=== PATIENT | female | born 1960 ===

== ENCOUNTER 2019-06-22 09:40 | Outpatient (CLI) | payer OTHER, SELFPAY ==
[2019-06-22 10:33] LABS: Abs Immature Grans 0.01 k/cumm (0.0-0.09); Absolute Basophil Count 0.04 k/cumm (0.0-0.2); Absolute Eosinophil Count 0.12 k/cumm (0.0-0.7); Absolute Monocyte Count 0.33 k/cumm (0.11-0.7); Absolute Neutrophil Count 3.21 k/cumm (1.2-6.7); Basophils % 0.8; Eosinophils % 2.3; HCT 42.1 % (36.0-46.0); Immature Grans % 0.2; Lymphocytes % 28.8; Mean Corp. HGB Concentration 33.3 g/dL (32.0-36.0); Mean Corpuscular Hemoglobin 29.4 pg (27.0-33.0); Mean Corpuscular Volume 88.4 fL (80-95); Mean Platelet Volume 9.2 fL (8.0-11.0); Monocytes % 6.3; Neutrophils % 61.6; Platelet Count 339 x1000/uL (130-400); RBC 4.76 m/cumm (4.00-5.20); RBC Distribution Width 13.1 % (11.7-14.6); White Blood Cell Count 5.21 k/cumm (4.4-10.8)
[2019-06-22 12:26] LABS: ALT 18 U/L (14-59); AST 12 U/L (15-37); Albumin 3.7 g/dL (3.4-5.0); Alkaline Phosphatase 66 U/L (46-116); Anion Gap 8.5 mmol/L (3-11); BUN 15 mg/dL (7-18); Bilirubin, Total 0.5 mg/dL (0.2-1.0); CO2 30.5 mmol/L (21.0-32.0); CREATININE 0.66 mg/dL (0.55-1.02); Calcium 9.4 mg/dL (8.5-10.1); Calculated LDL 84 mg/dL; Chloride 105 mmol/L (98-107); Cholesterol 159 mg/dL (50-200); Glucose 83 mg/dL (70-100); HDL Cholesterol 58 mg/dL (40-60); Potassium 4.6 mmol/L (3.5-5.1); Sodium 144 mmol/L (136-145); TSH (W/Ref FT4) 2.48 uIU/mL (0.36-3.74); Total Protein 7.1 g/dL (6.4-8.2); Triglyceride 88 mg/dL (30-150)
== END 2019-06-22 10:00 ==
PROVIDERS: PCP General Practice; Visit Provider General Practice
DX: Z00.00 Encounter for general adult medical examination without abnormal findings (principal); Z13.228 Encounter for screening for other metabolic disorders; Z13.0 Encounter for screening for diseases of the blood and blood-forming organs and certain disorders involving the immune mechanism; E78.2 Mixed hyperlipidemia
CPT/HCPCS: 36415; 80053; 80061; 84443; 85025

== ENCOUNTER 2020-06-25 04:02 | Outpatient (CLI) | payer OTHER, SELFPAY ==
[2020-06-25 07:43] LABS: Abs Immature Grans 0.02 10^3/uL (0.0-0.06); Absolute Basophil Count 0.04 10^3/uL (0.0-0.2); Absolute Eosinophil Count 0.13 10^3/uL (0.0-0.7); Absolute Lymphocyte Count 1.59 10^3/uL (1.2-3.4); Absolute Monocyte Count 0.47 10^3/uL (0.1-0.8); Absolute Neutrophil Count 3.69 10^3/uL (1.2-6.7); Basophils % 0.7; Eosinophils % 2.2; HCT 43.7 % (36.0-46.0); HGB 14.1 g/dL (11.2-15.7); Immature Grans % 0.3; Lymphocytes % 26.8; MCH 28.8 pg (27.0-33.0); MCHC 32.3 % (32.0-36.0); MCV 89.4 fL (80-95); Monocytes % 7.9; Neutrophils % 62.1; Nucleated RBC 0 %; Platelet Count 297 10^3/uL (130-400); RBC 4.89 10^6/uL (3.93-5.22); RDW 12.6 % (11.7-14.6); RDW-SD 41.7 fL; WBC 5.94 10^3/uL (4.4-10.8)
[2020-06-25 08:57] LABS: ALT 20 U/L (14-59); AST 14 U/L (15-37); Albumin 3.8 g/dL (3.4-5.0); Alkaline Phosphatase 64 U/L (46-116); Anion Gap 9.7 mmol/L (3-11); BUN 17 mg/dL (7-18); Bilirubin, Total 0.5 mg/dL (0.2-1.0); CO2 27.3 mmol/L (21.0-32.0); CREATININE 0.67 mg/dL (0.55-1.02); Calcium 9.1 mg/dL (8.5-10.1); Calculated LDL 84 mg/dL (<100); Chloride 103 mmol/L (98-107); Cholesterol 171 mg/dL (<200); Glucose 90 mg/dL (74-106); HDL Cholesterol 58 mg/dL (40-60); Potassium 4.4 mmol/L (3.5-5.1); Sodium 140 mmol/L (136-145); TSH (W/Ref FT4) 2.79 uIU/mL (0.36-3.74); Triglyceride 147 mg/dL (<150)
== END 2020-06-25 04:22 ==
PROVIDERS: PCP General Practice; Visit Provider General Practice
DX: Z00.00 Encounter for general adult medical examination without abnormal findings (principal); Z13.220 Encounter for screening for lipoid disorders; Z13.228 Encounter for screening for other metabolic disorders; Z13.29 Encounter for screening for other suspected endocrine disorder; R53.83 Other fatigue
CPT/HCPCS: 36415; 80053; 80061; 84443; 85025

== ENCOUNTER 2021-10-07 03:12 | Outpatient (CLI) | payer MEDICAID, SELFPAY ==
[2021-10-07 12:59] LABS: ESR 17 mm/hr (0-30)
[2021-10-07 14:21] LABS: C-Reactive Protein 0.49 mg/dL (0.0-0.3)
== END 2021-10-07 03:13 | disposition home or self-care (01) ==
LOC: LBO 03:12
PROVIDERS: PCP General Practice; Visit Provider Student in an Organized Health Care Education/Training Program
DX: T84.84XA Pain due to internal orthopedic prosthetic devices, implants and grafts, initial encounter (principal); Z96.653 Presence of artificial knee joint, bilateral
CPT/HCPCS: 36415; 85652; 86140

== ENCOUNTER 2021-11-12 01:57 | Outpatient (CLI) | payer MEDICAID, SELFPAY ==
--- NOTE | 2021-11-12 07:00 | DI.NM_ITS ---
Exam(s) NM BONE SCAN 3 PHASE EXAM: NM BONE SCAN 3 PHASE CLINICAL HISTORY: eval painful b/l TKA,t84.84xa,z96.659. TECHNIQUE: Injected Dose: 25 mCi Tc-99m MDP COMPARISON: CR XR KNEE 4 VIEW LEFT, XR KNEE 4 VIEW RIGHT from 06/21/2017 CR XR PROF KNEE 4 VIEW RIGHT from 02/10/2021 Prior bilateral knee films June 2017. No recent knee radiographs available. FINDINGS: Perfusion phase: No asymmetric flow evident. Equilibrium phase: No abnormal uptake in either knee. Delayed images (3.5 hours): With the exception of the knees and below there is no abnormal skeletal u ptake to suggest osseous neoplastic disease. Slight asymmetric increased uptake is seen in the left sternoclavicular joint which is probably degenerative. Knees: On the delayed images there is mild focal increased uptake seen in both sides of the tibial pl ateau of the right knee and in the posterior aspect of the lateral tibial plateau of the left knee. Mild uptake is seen around the upper aspect of both femoral components, posteriorly. IMPRESSION: 1. No evidence to suggest osteomyelitis. 2. Uptake on delayed imaging possibly indicates an element of loosening, more prominent on the right side. DATA REPOSITORY:
== END 2021-11-12 02:17 ==
PROVIDERS: PCP General Practice; Visit Provider Student in an Organized Health Care Education/Training Program
DX: T84.84XA Pain due to internal orthopedic prosthetic devices, implants and grafts, initial encounter (principal); Z96.653 Presence of artificial knee joint, bilateral
CPT/HCPCS: 78315

== ENCOUNTER 2021-11-22 17:35 | Outpatient (REF) | payer MEDICAID, SELFPAY ==
[2021-11-22 14:08] LABS: Clarity Cloudy; Mononuclear Cells 98 %; Nucleated Cells 578 uL (0); Polynuclear Cells 2 %
== END 2021-11-22 17:36 | disposition home or self-care (01) ==
LOC: LBN 17:35
PROVIDERS: PCP General Practice; Visit Provider Student in an Organized Health Care Education/Training Program
DX: T84.84XA Pain due to internal orthopedic prosthetic devices, implants and grafts, initial encounter (principal); Z96.651 Presence of right artificial knee joint
CPT/HCPCS: 87070; 87205; 89051

== ENCOUNTER 2021-12-01 03:02 | Outpatient (CLI) | payer MEDICAID, SELFPAY ==
[2021-12-01 10:33] LABS: Abs Immature Grans 0.02 10^3/uL (0.0-0.06); Absolute Basophil Count 0.04 10^3/uL (0.0-0.2); Absolute Eosinophil Count 0.15 10^3/uL (0.0-0.7); Absolute Lymphocyte Count 1.46 10^3/uL (1.2-3.4); Absolute Monocyte Count 0.48 10^3/uL (0.1-0.8); Absolute Neutrophil Count 3.48 10^3/uL (1.2-6.7); Basophils % 0.7; Eosinophils % 2.7; HCT 44.4 % (36.0-46.0); HGB 14.1 g/dL (11.2-15.7); Immature Grans % 0.4; Lymphocytes % 25.9; MCH 28.8 pg (27.0-33.0); MCHC 31.8 % (32.0-36.0); MCV 90.6 fL (80-95); MPV 8.7 fL (8.0-11.0); Monocytes % 8.5; Neutrophils % 61.8; Nucleated RBC 0 %; Platelet Count 275 10^3/uL (130-400); RDW 12.9 % (11.7-14.6); RDW-SD 42.9 fL; WBC 5.63 10^3/uL (4.4-10.8)
[2021-12-01 12:08] LABS: ALT 21 U/L (14-59); AST 19 U/L (15-37); Alkaline Phosphatase 60 U/L (46-116); Anion Gap 6.2 mmol/L (3-11); BUN 15 mg/dL (7-18); Bilirubin, Total 0.5 mg/dL (0.2-1.0); CO2 30.8 mmol/L (21.0-32.0); CREATININE 0.7 mg/dL (0.55-1.02); Calcium 9.4 mg/dL (8.5-10.1); Chloride 103 mmol/L (98-107); Glucose 91 mg/dL (74-106); Potassium 4.5 mmol/L (3.5-5.1); Sodium 140 mmol/L (136-145); TSH (W/Ref FT4) 2.44 uIU/mL (0.36-3.74); Total Protein 7.5 g/dL (6.4-8.2)
[2021-12-02 14:53] LABS: Calculated LDL 100 mg/dL (<100); Cholesterol 182 mg/dL (<200); HDL Cholesterol 56 mg/dL (40-60); Triglyceride 132 mg/dL (<150)
== END 2021-12-01 03:03 | disposition home or self-care (01) ==
LOC: LBO 03:02
PROVIDERS: PCP General Practice; Visit Provider General Practice
DX: Z00.00 Encounter for general adult medical examination without abnormal findings (principal)
CPT/HCPCS: 36415; 80053; 80061; 84443; 85025

== ENCOUNTER 2022-12-15 02:02 | Outpatient (CLI) | payer MEDICAID, SELFPAY ==
[2022-12-15 11:16] LABS: Abs Immature Grans 0.02 10^3/uL (0.0-0.06); Absolute Basophil Count 0.06 10^3/uL (0.0-0.2); Absolute Eosinophil Count 0.12 10^3/uL (0.0-0.7); Absolute Monocyte Count 0.44 10^3/uL (0.1-0.8); Absolute Neutrophil Count 3.75 10^3/uL (1.2-6.7); Basophils % 1.1; Eosinophils % 2.1; HCT 41.8 % (36.0-46.0); HGB 13.6 g/dL (11.2-15.7); Immature Grans % 0.4; Lymphocytes % 22.8; MCH 27.8 pg (27.0-33.0); MCHC 32.5 % (32.0-36.0); MCV 85 fL (80-95); MPV 9.2 fL (8.0-11.0); Monocytes % 7.7; Neutrophils % 65.9; Platelet Count 319 10^3/uL (130-400); RDW 13.7 % (11.7-14.6); WBC 5.69 10^3/uL (4.4-10.8)
[2022-12-15 11:34] LABS: ALT 20 U/L (14-59); AST 13 U/L (15-37); Albumin 3.7 g/dL (3.4-5.0); Alkaline Phosphatase 73 U/L (46-116); Anion Gap 5.1 mmol/L (3-11); BUN 16 mg/dL (7-18); Bilirubin, Total 0.3 mg/dL (0.2-1.0); CO2 30.9 mmol/L (21.0-32.0); CREATININE 0.8 mg/dL (0.55-1.02); Calcium 9.2 mg/dL (8.5-10.1); Calculated LDL 70 mg/dL (<100); Chloride 104 mmol/L (98-107); Cholesterol 162 mg/dL (<200); Glucose 99 mg/dL (74-106); HDL Cholesterol 63 mg/dL (40-60); Potassium 4.3 mmol/L (3.5-5.1); Sodium 140 mmol/L (136-145); TSH (W/Ref FT4) 2.37 uIU/mL (0.36-3.74); Total Protein 7.7 g/dL (6.4-8.2); Triglyceride 145 mg/dL (<150)
== END 2022-12-15 02:03 | disposition home or self-care (01) ==
LOC: LBO 02:02
PROVIDERS: PCP General Practice; Visit Provider General Practice
DX: Z13.220 Encounter for screening for lipoid disorders (principal); Z13.29 Encounter for screening for other suspected endocrine disorder; Z13.0 Encounter for screening for diseases of the blood and blood-forming organs and certain disorders involving the immune mechanism; Z13.228 Encounter for screening for other metabolic disorders; Z00.00 Encounter for general adult medical examination without abnormal findings
CPT/HCPCS: 36415; 80053; 80061; 84443; 85025

== ENCOUNTER 2023-05-25 14:22 | Outpatient (REF) | payer BC, SELFPAY ==
--- NOTE | 2023-05-25 13:50 | ENDOMET_PTH ---
PATIENT: Kenia Lou LOC: [facility] U#:[id number] AGE/SX: 62/F ROOM: RE05/25/[address]: Mariela Cole MD : 1960 BED: DIS: 05/25/2023 SPEC #: [id number] RECD: 05/25/23 16:43 STATUS: SHAHID REQ #: [id number] ENRIQUE: 05/25/23 13:[address]: Mariela Cole DEPT: Surgical Specimen RECD BY: Janel Ayers ENTERED: 05/25/23 16:43 SP TYPE: Endomet OTHR DR: Mary Anglin Tissues: 1 - ENDOMETRIUM BX/KAHLIL Procedures: GROSS AND MICRO LEVEL 4 Comments: [id number]
== END 2023-05-25 14:23 | disposition home or self-care (01) ==
LOC: LBN 14:22
PROVIDERS: PCP General Practice; Visit Provider Obstetrics & Gynecology
DX: N95.0 Postmenopausal bleeding (principal); N85.00 Endometrial hyperplasia, unspecified
CPT/HCPCS: 88305

== ENCOUNTER 2025-06-18 15:14 | Outpatient (REF) | payer MEDICARE, SELFPAY ==
[2025-06-18 21:21] LABS: HCT 42.0 % (36.0-46.0); HGB 13.7 g/dL (11.2-15.7); MCH 28.1 pg (27.0-33.0); MCHC 32.6 % (32.0-36.0); MCV 86 fL (80-95); MPV 9.6 fL (8.0-11.0); Platelet Count 307 10^3/uL (130-400); RBC 4.87 10^6/uL (3.93-5.22); RDW 13.7 % (11.7-14.6); RDW-SD 43.5 fL; WBC 6.37 10^3/uL (4.4-10.8)
[2025-06-18 22:11] LABS: ALT 28 U/L (14-59); AST 19 U/L (15-37); Albumin 3.9 g/dL (3.4-5.0); Alkaline Phosphatase 79 U/L (46-116); Anion Gap 10.6 mmol/L (3-11); BUN 13 mg/dL (7-18); Bilirubin, Total 0.4 mg/dL (0.2-1.0); CO2 28.4 mmol/L (21.0-32.0); Calcium 9.4 mg/dL (8.5-10.1); Calculated LDL 78 mg/dL (<100); Chloride 102 mmol/L (98-107); Cholesterol 174 mg/dL (<200); Estimated GFR 97.12 (mL/min/1.73m2); Glucose 93 mg/dL (74-106); HDL Cholesterol 55 mg/dL (>or=50); Potassium 4.8 mmol/L (3.5-5.1); Sodium 141 mmol/L (136-145); TSH 2.21 uIU/mL (0.36-3.74); Total Protein 7.4 g/dL (6.4-8.2); Triglyceride 207 mg/dL (<150)
== END 2025-06-18 15:15 | disposition home or self-care (01) ==
LOC: NCHCN 15:14
PROVIDERS: PCP General Practice
DX: Z00.00 Encounter for general adult medical examination without abnormal findings (principal)
CPT/HCPCS: 80053; 80061; 85027; 84443